=== PATIENT | female | born 1990 | race Caucasian/White ===

== ENCOUNTER 2020-02-06 08:06 | Emergency (ER) | payer BC ==
[~2020-02-06] VITALS: Ht 157.5 cm; Wt 59.0 kg
[2020-02-06 08:15] VITALS: BP_SYST 102
--- NOTE | 2020-02-06 08:15 | NUR ---
Patient to ER bed 5 to gown for evaluation. Side rails up. Report given to ARIANA Weathers.
--- NOTE | 2020-02-06 08:31 | NUR ---
pt in [facility]. Alert and Oriented. VSS
--- NOTE | 2020-02-06 09:13 | NUR ---
pt in [facility]. No distress
[2020-02-06 09:46] LABS: BILIRUBIN,URINE NEGATIVE (NEGATIVE); BLOOD, URINE 2+ (NEGATIVE); CLARITY/URINE CLEAR (CLEAR); COLOR,URINE YELLOW (YELLOW); GLUCOSE,URINE NEGATIVE (NEGATIVE); HCG,QUAL RESULT POSITIVE (NEGATIVE); KETONES,URINE NEGATIVE (NEGATIVE); LEUKOCYTE ESTERASE ,URINE NEGATIVE (NEGATIVE); NITRITE, URINE NEGATIVE (NEGATIVE); PH,URINE 6.5 (5.0-8.0); PROTEIN URINE NEGATIVE (NEGATIVE); UROBILINOGEN,URINE 0.2 (0.2-1.0)
--- NOTE | 2020-02-06 09:49 | NUR ---
Patient transported to radiology via WC, accompanied by US tech.
[2020-02-06 09:55] LABS: BASOPHILS % (AUTO) 0.5 % (0.0-2.0); EOSINOPHILS # (AUTO) 0.1 K/uL (0.0-0.4); EOSINOPHILS % (AUTO) 0.9 % (0.0-4.0); HEMATOCRIT 41.7 % (36-48); HEMOGLOBIN 13.9 g/dL (12.0-16.0); LYMPHOCYTES # (AUTO) 1.7 K/uL (1.0-5.5); LYMPHOCYTES % (AUTO) 23.9 % (20.5-51.5); MEAN CORPUSCULAR HEMOGLOBIN 31 pg (27-31); MEAN CORPUSCULAR HGB CONC 33 % (32-36); MEAN CORPUSCULAR VOLUME 92 fL (79.0-98.0); MONOCYTES # (AUTO) 0.7 K/uL (0.0-1.0); MONOCYTES % (AUTO) 9.4 % (1.7-9.3); NEUTROPHILS # (AUTO) 4.7 K/uL (1.8-7.7); NEUTROPHILS % (AUTO) 65.3 % (40.0-70.0); PLATELET COUNT (AUTO) 163 K/uL (130-430); RED BLOOD CELL COUNT(AUTO) 4.56 MIL/uL (4.2-6.2); RED CELL DISTRIBUTION WIDTH 12.6 % (9.0-15.0); WHITE BLOOD COUNT (AUTO) 7.2 K/uL (4.8-10.8)
[2020-02-06 10:01] LABS: BACTERIA,URINE None Seen /HPF (None Seen); RBC,URINE NONE SEEN /HPF (0-3)
[2020-02-06 10:02] LABS: TRICHOMONAS,URINE None Seen /HPF (None Seen); YEAST,URINE None Seen /HPF (None Seen)
[2020-02-06 10:06] LABS: CALCIUM 8.6 mg/dL (8.4-11.0); CREATININE 0.82 mg/dL (0.55-1.30); POTASSIUM 3.9 mmol/L (3.5-5.1)
--- NOTE | 2020-02-06 10:57 | NUR ---
VSS. Denies pain at this time. Resting in [facility].
[2020-02-06 11:20] VITALS: BP_SYST 102
--- NOTE | 2020-02-06 11:21 | NUR ---
Patient given written and verbal discharge instructions and verbalizes understanding. ER MD discussed with patient the results and treatment provided. Patient in stable condition. ID arm band removed. Patient educated on pain management and to follow up with PMD. Pain Scale 1/10. Opportunity for questions provided and answered. Medication side effect fact sheet provided. Referral to [employer] provider. Dr. Toni Arango M.D.
== END 2020-02-06 11:20 | disposition home or self-care (01) ==
LOC: SED 08:06
DX: O03.4 Incomplete spontaneous abortion without complication (principal); Z3A.01 Less than 8 weeks gestation of pregnancy; Z88.0 Allergy status to penicillin; Z88.1 Allergy status to other antibiotic agents
CPT/HCPCS: 36415; 76801; 76817; 80048; 81000-TC; 81025; 84702-TC; 84703; 85025; 86900; 86901; 99284

== ENCOUNTER 2020-02-08 11:09 | Emergency (ER) | payer BC ==
[~2020-02-08] VITALS: Ht 160 cm; Wt 54.4 kg
[2020-02-08 11:17] VITALS: BP_SYST 101
[2020-02-08 12:34] VITALS: BP_SYST 101
== END 2020-02-08 12:30 | disposition home or self-care (01) ==
LOC: SED 11:09
DX: O20.9 Hemorrhage in early pregnancy, unspecified (principal); Z3A.01 Less than 8 weeks gestation of pregnancy; Z88.0 Allergy status to penicillin; Z88.1 Allergy status to other antibiotic agents
CPT/HCPCS: 36415; 84702-TC; 99283

== ENCOUNTER 2022-05-12 23:57 | Emergency (ER) | payer BC, OTHER ==
[~2022-05-12] VITALS: Ht 160 cm; Wt 59.0 kg
[2022-05-13 00:08] VITALS: BP_SYST 101
[2022-05-13] MEDS ORDERED: CEFEPIME 1 GM/VIAL (MAXIPIME) ONE (01:07)
[2022-05-13] MEDS: NACL 0.9% 1,000 ML IV ONE (01:11)
[2022-05-13] MEDS: CEFEPIME 1 GM in D5W 50 ML IV ONE (01:11)
[2022-05-13] MEDS: IBUPROFEN 600 MG TABLET PO ONE (01:11)
[2022-05-13] MEDS: DIPHTH,PERTUSS(ACELL),TET VAC 0.5 ML VIAL (Tdap) I.M. ONE (01:12)
[2022-05-13 01:26] LABS: BASOPHILS % (AUTO) 0.5 % (0.0-2.0); EOSINOPHILS # (AUTO) 0.2 K/uL (0.0-0.4); HEMATOCRIT 39.3 % (36-48); HEMOGLOBIN 13.8 g/dL (12.0-16.0); LYMPHOCYTES # (AUTO) 1.8 K/uL (1.0-5.5); LYMPHOCYTES % (AUTO) 22.5 % (20.5-51.5); MEAN CORPUSCULAR HEMOGLOBIN 32 pg (27-31); MEAN CORPUSCULAR HGB CONC 35 % (32-36); MEAN CORPUSCULAR VOLUME 91 fL (79.0-98.0); MONOCYTES # (AUTO) 0.7 K/uL (0.0-1.0); MONOCYTES % (AUTO) 9.4 % (1.7-9.3); NEUTROPHILS # (AUTO) 5.1 K/uL (1.8-7.7); NEUTROPHILS % (AUTO) 65.6 % (40.0-70.0); PLATELET COUNT (AUTO) 172 K/uL (130-430); RED BLOOD CELL COUNT(AUTO) 4.32 MIL/uL (4.2-6.2); WHITE BLOOD COUNT (AUTO) 7.9 K/uL (4.8-10.8)
[2022-05-13] MEDS ORDERED: LIDOCAINE 1%, 20 ML MDV 20 ML ONE (01:57)
[2022-05-13] MEDS ORDERED: LIDOCAINE 1% 10 MG/ML, 20 ML MDV INJ ONE (02:00)
[2022-05-13 02:18] LABS: CALCIUM 8.3 mg/dL (8.4-11.0); CREATININE 0.85 mg/dL (0.55-1.30)
[2022-05-13 02:24] LABS: ALBUMIN 3.4 g/dL (3.4-4.8); TOTAL BILIRUBIN 0.3 mg/dL (0.0-1.0)
[2022-05-13] MEDS ORDERED: DOXY-244 PO (07:53)
[2022-05-13 08:45] VITALS: BP_SYST 85
== END 2022-05-13 08:47 | disposition home or self-care (01) ==
LOC: SED 23:57
DX: S11.91XA Laceration without foreign body of unspecified part of neck, initial encounter (principal); S61.217A Laceration without foreign body of left little finger without damage to nail, initial encounter; S01.83XA Puncture wound without foreign body of other part of head, initial encounter; Z88.0 Allergy status to penicillin; Z88.1 Allergy status to other antibiotic agents; Z79.899 Other long term (current) drug therapy; W54.0XXA Bitten by dog, initial encounter; Y93.89 Activity, other specified; Y92.89 Other specified places as the place of occurrence of the external cause; Y99.8 Other external cause status
CPT/HCPCS: 99291; 80053; 85025; 36415; 12002; 96365; 70498; 90715; 90471; 76376; J0692; J2001; Q9967

== ENCOUNTER 2023-10-02 19:47 | Emergency (ER) | payer BC, OTHER ==
[~2023-10-02] VITALS: Ht 160 cm; Wt 59.0 kg
[~2023-10-02 19:47] MED LIST: DOXY-244 PO
[2023-10-02 19:57] VITALS: BP_SYST 92; PULSE 59; RESP 16; TEMP 98.5; O2SAT 98
[2023-10-02 20:50] LABS: BASOPHILS % (AUTO) 0.5 % (0.0-2.0); EOSINOPHILS # (AUTO) 0.1 K/uL (0.0-0.4); EOSINOPHILS % (AUTO) 1.1 % (0.0-4.0); HEMATOCRIT 40.2 % (36-48); HEMOGLOBIN 14.2 g/dL (12.0-16.0); LYMPHOCYTES # (AUTO) 2.7 K/uL (1.0-5.5); LYMPHOCYTES % (AUTO) 35.8 % (20.5-51.5); MEAN CORPUSCULAR HEMOGLOBIN 31 pg (27-31); MEAN CORPUSCULAR HGB CONC 35 % (32-36); MEAN CORPUSCULAR VOLUME 89 fL (79.0-98.0); MONOCYTES # (AUTO) 0.8 K/uL (0.0-1.0); MONOCYTES % (AUTO) 10.3 % (1.7-9.3); NEUTROPHILS % (AUTO) 52.3 % (40.0-70.0); PLATELET COUNT (AUTO) 176 K/uL (130-430); RED BLOOD CELL COUNT(AUTO) 4.53 MIL/uL (4.2-6.2); RED CELL DISTRIBUTION WIDTH 12.2 % (9.0-15.0); WHITE BLOOD COUNT (AUTO) 7.7 K/uL (4.8-10.8)
[2023-10-02 22:14] LABS: BILIRUBIN,URINE NEGATIVE (NEGATIVE); BLOOD, URINE 2+ (NEGATIVE); CLARITY/URINE CLEAR (CLEAR); COLOR,URINE YELLOW (YELLOW); GLUCOSE,URINE NEGATIVE (NEGATIVE); KETONES,URINE NEGATIVE (NEGATIVE); LEUKOCYTE ESTERASE ,URINE NEGATIVE (NEGATIVE); NITRITE, URINE NEGATIVE (NEGATIVE); PH,URINE 6.5 (5.0-8.0); PROTEIN URINE NEGATIVE (NEGATIVE); UROBILINOGEN,URINE 0.2 (0.2-1.0)
[2023-10-02 22:21] LABS: BACTERIA,URINE RARE /HPF (None Seen); MUCUS,URINE None Seen /LPF (None Seen); RBC,URINE 0-3 /HPF (0-3); WBC,URINE 0-3 /HPF (0-3)
[2023-10-02 23:11] VITALS: RESP 16; TEMP 98.5; O2SAT 98
[2023-10-03 00:07] VITALS: BP_SYST 90; PULSE 80
== END 2023-10-03 00:12 | disposition home or self-care (01) ==
LOC: SED 19:47
DX: O03.9 Complete or unspecified spontaneous abortion without complication (principal); O26.891 Other specified pregnancy related conditions, first trimester; Z3A.01 Less than 8 weeks gestation of pregnancy; Z88.0 Allergy status to penicillin; Z88.1 Allergy status to other antibiotic agents; Z79.899 Other long term (current) drug therapy
CPT/HCPCS: 36415; 76801; 76817; 81000; 81001; 81015; 84702; 85025; 86901; 99284